=== PATIENT | female | born 1945 | race Hispanic/Latino ===

== ENCOUNTER → 2020-02-24 | Outpatient (CLI) | payer MEDICARE ==
[~2020-02-24] MED LIST: ASPI-556 PO; IOHEXOL-350 75 ML VIAL IV ONE
== END | disposition home or self-care (01) ==
LOC: RAH 09:48
PROVIDERS: ATTEND Internal Medicine Gastroenterology
DX: K44.9 Diaphragmatic hernia without obstruction or gangrene (principal); R10.9 Unspecified abdominal pain; B18.2 Chronic viral hepatitis C
CPT/HCPCS: 74178; Q9967

== ENCOUNTER → 2024-06-29 | Outpatient (CLI) | payer MEDICARE ==
[~2024-06-29] MED LIST changes: -IOHEXOL-350 75 ML VIAL IV ONE
--- NOTE | 2024-06-29 12:42 | HMCIMG ---
NM GASTRIC EMPTYING STUDY REASON: ABDOMINAL DISTENSION. COMPARISON: None TECHNIQUE: Nuclear gastric emptying study was performed with 1.5 mCi of technetium sulfur colloid with scrambled eggs through oral route. FINDINGS: T half of gastric emptying is 46 minutes. IMPRESSION: Gastric emptying with T half of 46 minutes.
== END | disposition home or self-care (01) ==
LOC: RAH 10:32
PROVIDERS: ATTEND Internal Medicine Gastroenterology
DX: R14.0 Abdominal distension (gaseous) (principal)
CPT/HCPCS: 78264; A9541

== ENCOUNTER 2025-02-17 23:03 | Emergency (ER) | payer MEDICARE ==
[~2025-02-17] VITALS: Ht 157.5 cm; Wt 69.4 kg
[~2025-02-17 23:03] MED LIST changes: +METO25 PO
[2025-02-17 23:28] LABS: APPEARANCE,URINE CLEAR (CLEAR); GLUCOSE, URINE (UA) NEGATIVE (NEGATIVE); LEUKOCYTE ESTERASE ,URINE 25 Leu/uL (NEGATIVE); NITRATE,URINE NEGATIVE (NEGATIVE); OCCULT BLOOD,URINE NEGATIVE (NEGATIVE)
[2025-02-17 23:29] LABS: ADD UA MICROSCOPIC YES
[2025-02-17 23:37] LABS: IMMATURE GRANULOCYTE ABSOLUTE 0.01 K/uL (0-1); NUCLEATED RED BLOOD CELLS 0.0 % (0.0-0.19); PLATELET COUNT (AUTO) 305 K/uL (130-400); RED BLOOD CELL COUNT(AUTO) 4.88 MIL/uL (4.00-5.50); RED CELL DISTRIBUTION WIDTH 13.5 % (11.0-15.5); WHITE BLOOD COUNT (AUTO) 7.0 K/uL (4.8-10.8)
[2025-02-17 23:38] LABS: SQUAMOUS EPITHELIAL CELL,UR RARE /HPF (0-2)
[2025-02-17 23:46] LABS: CREATININE 0.8 mg/dL (0.5-1.0); GLOMERULAR FILTR. RATE CALC 76.0 mL/min (>90); GLUCOSE,RANDOM 97.0 mg/dL (70-105); SODIUM SERUM 141.0 mmol/L (136-145); UREA NITROGEN, BLOOD 20.0 mg/dL (7-18)
[2025-02-17 23:51] LABS: ASPARTATE AMINOTRANSFERASE 19.0 U/L (10-37); TOTAL PROTEIN, SERUM 7.7 g/dL (6.0-8.3)
--- NOTE | 2025-02-17 23:54 | ERN ---
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 As per previous Cardiology consultation at this facility stated the patient has history of symptomatic 2nd degree atrial septal defect status post percutaneous repair complicated by femoral bleeding in 2015. Patient is on metoprolol 25 mg b.i.d., she started feeling the palpitation today and she called her manager public Dr. BELLA who recommended patient is a taking 1 tablet in half of metoprolol. On arrival to the emergency room patient's heart rate was in the 120s -130s, during my evaluation the patient heart rate dropped to the 80s, EKG shows sinus rhythm at 77 rate. Patient denies chest pain. Allergies: Coded Allergies: Penicillins (Unverified Allergy, Unknown, 05/02/16) codeine (Unverified Allergy, Unknown, 05/02/16) Home Meds Active Scripts Metoprolol Tartrate (Lopressor) 25 Mg Tab, 25 MG PO BID for 30 Days, #60 TAB 1 Refill Prov:MONICA ESPINOZA MD 08/14/24 Reported Medications Aspirin (Aspir 81) 81 Mg Tablet.dr, 81 MG PO DAILY, TAB 05/02/16 Past Medical History Past Medical History: Other Additional Past Medical Hx: HEART IMPLANT, patient takes aspirin daily because of TIA 10 years ago Surgical History: Hysterectomy, Cholecystectomy, Other Surgical History Other: HX OF OPEN HEART Review of System Dictation NEGATIVE EXCEPT PER HPI Constitutional: Negative for fever,chills, and weight loss Eyes: Negative for injury, pain,redness, and discharge ENT: Negative for injury,pain or swelling Cardiovascular: Has palpitation Respiratory: Negative for shortness of breath, cough, and wheezing, Abdomen/GI: Negative for abdominal pain, nausea, vomiting, diarrhea, and constipation Back: Negative for injury and pain : Negative for injury, bleeding and discharge MS/Extremity: Negative for injury and deformity Skin: Negative for rash, and discoloration Neuro: Negative for headache, weakness, numbness, tingling, and seizure Psych: Negative for suicide ideation, homicidal ideation, and hallucinations Initial Vital Sign VS Vital Signs Date Time Temp Pulse Resp B/P (MAP) Pulse Ox O2 Delivery O2 Flow Rate FiO2 02/17/25 23:09 97.5 119 20 144/87 110 Room Air 02/17/25 23:34 0 21 Physical Exam Dictation General: awake, alert, NAD Head/Face: Normocephalic, atraumatic Eyes: PERRL, EOMI, vision at baseline ENT: oral cavity clear, TMs clear, no signs of infection Neck: Trachea midline, supple, no nuchal rigidity Cardiovascular: RRR, normal S1/S2, No MRGs, no JVD Respiratory: CTAB, no respiratory distress, No rales or wheezes Abdomen: Soft , no tender Skin: Warm, dry, normal turgor, no rash MS/Extremity: Pulses equal, no cyanosis, neurovascular intact, FROM Neuro: COAx4, GCS 15, strength 5/5, CN 2-12 intact, normal cerebellar exam, normal gait, Psych: Normal behavior, mood, and affect normal Results (Laboratory/Radiology) Laboratory/Radiology Laboratory Tests Test 02/17/25 23:17 02/17/25 23:30 Urine Color COLORLESS (YELLOW) Urine Appearance CLEAR (CLEAR) Urine pH 6.0 (5.0-8.0) Urine Specific [place] 1.004 (1.001-1.031) Urine Protein NEGATIVE mg/dL (NEGATIVE) Urine Glucose (UA) NEGATIVE mg/dL (NEGATIVE) Urine Ketones NEGATIVE mg/dL (NEGATIVE) Urine Occult Blood NEGATIVE (NEGATIVE) Urine Nitrate NEGATIVE (NEGATIVE) Urine Bilirubin NEGATIVE mg/dL (NEGATIVE) Urine Urobilinogen 0.2 mg/dL (0.2-1.0) Urine Leukocyte Esterase 25 Petra/uL (NEGATIVE) H Urine RBC None /HPF (0-1) Urine WBC 2-5 /HPF (0-1) H Urine Squamous Epithelial Cells RARE /HPF (0-2) Urine Bacteria None /HPF (None Seen) White Blood Count 7.0 K/uL (4.8-10.8) Red Blood Count 4.88 MIL/uL (4.00-5.50) Hemoglobin 14.9 g/dL (12.0-16.0) Hematocrit 43.5 % (36-48) Mean Corpuscular Volume 89.1 fL (79-99) Mean Corpuscular Hemoglobin 30.5 pg (27.0-33.0) Mean Corpuscular Hemoglobin Concent 34.3 g/dL (32.0-36.0) Red Cell Distribution Width 13.5 % (11.0-15.5) Platelet Count 305 K/uL (130-400) Mean Platelet Volume 10.4 fL (7.5-10.5) Immature Granulocyte % (Auto) 0.1 % (0-1) Neutrophils (%) (Auto) 43.4 % (40.0-77.0) Lymphocytes (%) (Auto) 41.5 % (21.0-51.0) Monocytes (%) (Auto) 11.9 % (3.0-13.0) Eosinophils (%) (Auto) 2.7 % (0.0-8.0) Basophils (%) (Auto) 0.4 % (0.0-5.0) Neutrophils # (Auto) 3.0 K/uL (1.8-7.7) Lymphocytes # (Auto) 2.9 K/uL (1.0-4.8) Monocytes # (Auto) 0.8 K/uL (0.1-1.0) Eosinophils # (Auto) 0.19 K/uL (0.00-0.70) Basophils # (Auto) 0.03 K/uL (0.00-0.20) Absolute Immature Granulocyte (auto 0.01 K/uL (0-1) Nucleated Red Blood Cells 0.0 % (0.0-0.19) Sodium Level 141 mmol/L (136-145) Potassium Level 3.8 mmol/L (3.5-5.1) Chloride Level 105 mmol/L (101-111) Carbon Dioxide Level 26 mmol/L (21-32) Blood Urea Nitrogen 20 mg/dL (7-18) H Creatinine 0.8 mg/dL (0.5-1.0) Glomerular Filtration Rate Calc 76 mL/min (>90) Random Glucose 97 mg/dL (70-105) Total Calcium 9.0 mg/dL (8.5-10.1) Magnesium Level 2.00 mg/dL (1.80-2.40) Total Bilirubin 1.0 mg/dL (0.2-1.0) Aspartate Amino Transf (AST/SGOT) 19 U/L (10-37) Alanine Aminotransferase (ALT/SGPT) 19 U/L (12-78) Alkaline Phosphatase 116 U/L (50-136) Troponin I High Sensitivity 15 ng/L (4-50) Total Protein 7.7 g/dL (6.0-8.3) Albumin 4.1 g/dL (3.5-5.0) EKG Comment: Sinus rhythm Rate 77 AR 239, QT 357, QTC ED Course ED Course Orders Procedure Category Date Status Time 12 Lead Ekg Tracing- EKG 02/17/25 Logged Technical 23:12 Comprehensive LAB 02/17/25 Complete Metabolic Panel 23:12 Urinalysis Profile LAB 02/17/25 Complete 23:12 Magnesium LAB 02/17/25 Complete 23:12 Troponin I High LAB 02/17/25 Complete Sensitivity 23:12 Cbc With Differential LAB 02/17/25 Complete 23:12 Vital Signs Date Time Temp Pulse Resp B/P (MAP) Pulse Ox O2 Delivery O2 Flow Rate FiO2 02/18/25 00:08 97.9 72 18 152/70 98 Room Air* 0 21 02/17/25 23:34 97.9 104 21 162/108 98 Room Air* 0 21 02/17/25 23:09 97.5 119 20 144/87 110 Room Air Medical Decision Making MDM Sinus tachycardia History of supraventricular tachycardia. -monitor heart rate on telemetry -cardio workup ordered on arrival to triage -we will follow results. ----- Cardiac workup within normal limits Troponin within normal limits Palpitation resolved, The patient received instruction to take a metoprolol 25 mg p.o. t.i.d. She must follow up with her manager public as outpatient DX & DISP Disposition: Discharge Departure Impression: Primary Impression: Supraventricular tachycardia Condition: Stable Referrals: BERTRAM FRANCO (PCP) Time of Disposition: 00:13 RETURN TO ER FOR ANY ACUTE OR WORSENING SYMPTOMS. FOLLOW-UP IN 1-2 DAYS WITH PRIMARY PROVIDER FOR RECHECK OF TODAY'S SYMPTOMS. DALTON BERNARD MD Feb 17, 2025 23:54
[2025-02-18 00:43] VITALS: BP 160/75; PULSE 71; RESP 18; TEMP 97.8; O2SAT 98
--- NOTE | 2025-02-18 02:57 | EKG ---
[facility] Test Date: 2025-02-17 Test Time: 23:21:32 Pat Name: SULEMA PÉREZ Department: ED Room: Gender: F Pharmacy Buyer: [id number] : 1945 Requested By: DALTON ESPINOZA Order Number: [id number] Reading MD: Prashant Casillas Measurements Intervals [place] Rate: 77 P: 44 MS: 239 QRS: 147 QRSD: 106 T: 61 QT: 357 QTc: 405 Interpretive Statements Sinus rhythm Prolonged MS interval Compared to ECG 08/13/2024 07:53:08 Right-axis deviation no longer present Electronically Signed On 02-18-2025 16:11:52 CDT by Prashant Casillas Please click the below link to view image of tracing.
== END 2025-02-18 00:44 | disposition home or self-care (01) ==
LOC: EDH 23:03
DX: I47.10 Supraventricular tachycardia, unspecified (principal); Z88.0 Allergy status to penicillin; Z88.5 Allergy status to narcotic agent; Z79.899 Other long term (current) drug therapy; Z79.82 Long term (current) use of aspirin; Z90.49 Acquired absence of other specified parts of digestive tract; Z90.710 Acquired absence of both cervix and uterus; Z86.73 Personal history of transient ischemic attack (TIA), and cerebral infarction without residual deficits
CPT/HCPCS: 36415; 80053; 81001; 83735; 84484; 85025; 93005; 99284